=== PATIENT | male | born 1990 | race Caucasian/White ===

== ENCOUNTER 2017-03-16 12:50 | Emergency (ER) | payer SELFPAY ==
[~2017-03-16] VITALS: Ht 167.6 cm; Wt 85.9 kg
[~2017-03-16 12:50] MED LIST: PREVACID 30MG30 M1 PO; ZOFRAN ODT4 MG PO
[2017-03-16 12:53] VITALS: BP 129/66; PULSE 82; TEMP 98
[2017-03-16] MEDS ORDERED: PEN-VEE K500 MG PO (13:57)
[2017-03-16] MEDS ORDERED: ZOFRAN ODT4 MG PO (13:57)
[2017-03-16] MEDS ORDERED: CLEOCIN HCL300 MG PO (14:21)
== END 2017-03-16 14:24 | disposition home or self-care (01) ==
LOC: COL.ER 12:50
DX: K02.9 Dental caries, unspecified (principal); F17.210 Nicotine dependence, cigarettes, uncomplicated